=== PATIENT | female | born 1990 ===

== ENCOUNTER 2018-07-23 20:36 | Observation (INO) | payer OTHER | END 2018-07-23 22:11 | disposition home or self-care (01) | LOC: MW.OB 20:36 | PROVIDERS: ADMIT Obstetrics & Gynecology; ATTEND Obstetrics & Gynecology | DX: O47.1 False labor at or after 37 completed weeks of gestation (principal); O36.8130 Decreased fetal movements, third trimester, not applicable or unspecified; Z3A.35 35 weeks gestation of pregnancy | CPT/HCPCS: 59025; 81003 ==

== ENCOUNTER 2018-08-22 04:36 | Inpatient (IN) | payer OTHER ==
[2018-08-22] MEDS ORDERED: Sodium Chloride 0.9% 2.5 ML Syringe FLUSH PRN (17:56)
[2018-08-22] MEDS ORDERED: Sodium Chloride 0.9% 10 ML Syringe FLUSH PRN (17:56)
[2018-08-22] MEDS ORDERED: Misoprostol 200 MCG Tab PO PRN (17:56)
[2018-08-22] MEDS ORDERED: Sodium Chloride 0.9% 10 ML SDV IV PRN (17:56)
[2018-08-22] MEDS ORDERED: Carboprost Tromethamine 250 MCG/1 ML Amp IM PRN (17:56)
[2018-08-22] MEDS ORDERED: Butorphanol 1 MG/ML SDV IVPUSH PRN (17:56)
[2018-08-22] MEDS ORDERED: Nalbuphine 10 MG/1 ML Vial IVPUSH PRN (17:56)
[2018-08-22] MEDS ORDERED: Water For Irrigation,Sterile 1,000 ML Container IRR PRN (17:56)
[2018-08-22] MEDS ORDERED: Methylergonovine 0.2 MG/1 ML Amp IM PRN (17:56)
[2018-08-22] MEDS ORDERED: Tranexamic Acid 1,000 MG in Sodium Chloride 0.9% 100 ML IV PRN (17:56)
[2018-08-22] MEDS ORDERED: Lidocaine 1% 50 ML MDV INJECT PRN (17:56)
[2018-08-22] MEDS ORDERED: Oxytocin/0.9 % Sodium Chloride 30 UNIT/500 ML BAG IV SCH ×2 (18:00→18:30)
[2018-08-22] MEDS ORDERED: Terbutaline 1 MG/ML SDV SUBCUT PRN (18:21)
[2018-08-22] MEDS: Lactated Ringers 1,000 ML IV SCH (19:53)
--- NOTE | 2018-08-22 23:04 | PCM.PREANE ---
Preanesthetic Assessment - Anesthesia/Transfusion/Family Hx Anesthesia History: Prior Anesthesia Without Reaction Transfusion History: No Prior Transfusion(s) - Review of Systems General: No Symptoms Pulmonary: No Symptoms Cardiovascular: No Symptoms Gastrointestinal: No Symptoms Neurological: No Symptoms Other: Reports: None - Physical Assessment Height: 5 ft 3 in Weight: 57.153 kg ASA Class: 2 Mental Status: Alert & Oriented x3 Airway Class: Mallampati = 2 Dentition: Reports: Normal Dentition Thyro-Mental Finger Breadths: 3 Mouth Opening Finger Breadths: 3 Lungs: Clear to Auscultation, Normal Respiratory Effort Cardiovascular: Regular Rate, Regular Rhythm - Lab Values: Laboratory Last Values WBC 6.83 K/uL (4.0-11.0) 08/22/18 18:13 RBC 4.41 M/uL (4.30-5.90) 08/22/18 18:13 Hgb 9.4 g/dL (12.0-16.0) L 08/22/18 18:13 Hct 31.8 % (36.0-46.0) L 08/22/18 18:13 MCV 72.1 fL (80.0-98.0) L 08/22/18 18:13 MCH 21.3 pg (27.0-32.0) L 08/22/18 18:13 MCHC 29.6 g/dL (31.0-37.0) L 08/22/18 18:13 RDW Std Deviation 44.2 fl (28.0-62.0) 08/22/18 18:13 RDW Coeff of Frances 17 % (11.0-15.0) H 08/22/18 18:13 Plt Count 224 K/uL (150-400) 08/22/18 18:13 MPV 10.10 fL (7.40-12.00) 08/22/18 18:13 Nucleated RBC % 0.6 /100WBC 08/22/18 18:13 Nucleated RBCs # 0 K/uL 08/22/18 18:13 Blood Type O POSITIVE 08/22/18 18:13 Antibody Screen NEGATIVE 08/22/18 18:13 - Allergies Allergies/Adverse Reactions: Allergies Allergy/AdvReac Type Severity Reaction Status Date / Time No Known Allergies Allergy Verified 08/22/18 17:54 - Acknowledgements Anesthesia Type Planned: Epidural Pt an Appropriate Candidate for the Planned Anesthesia: Yes Alternatives and Risks of Anesthesia Discussed w Pt/Guardian: Yes Pt/Guardian Understands and Agrees with Anesthesia Plan: Yes PreAnesthesia Questionnaire HEENT History: Reports: None Cardiovascular History: Reports: None Respiratory History: Reports: None Gastrointestinal History: Reports: Chronic Constipation, GERD Genitourinary History: Reports: None 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): Musculoskeletal History: Reports: None Neurological History: Reports: Migraines Psychiatric History: Reports: Anxiety, OCD, Panic Attack Endocrine/Metabolic History: Reports: None Hematologic History: Reports: None Immunologic History: Reports: None Oncologic (Cancer) History: Reports: None Dermatologic History: Reports: None - Infectious Disease History Infectious Disease History: Reports: Chicken Pox - Past Surgical History HEENT Surgical History: Reports: None GI Surgical History: Reports: None Female Surgical History: Reports: None Musculoskeletal Surgical History: Reports: None - SUBSTANCE USE Smoking Status *Q: Never Smoker Second Hand Smoke Exposure: No Recreational Drug Use History: No - HOME MEDS Home Medications: Home Meds . [No Known Home Meds] 08/22/18 [History] - CURRENT (IN HOUSE) MEDS Current Meds: Current Medications Butorphanol Tartrate (Stadol) 1 mg IVPUSH Q1H PRN PRN Reason: Pain Carboprost Tromethamine (Hemabate Ds) 250 mcg IM ASDIRECTED PRN PRN Reason: Post Hemorrhage Lactated Ringer's (Ringers, Lactated) 1,000 mls @ 150 mls/hr IV ASDIRECTED MARIKA Last Admin: 08/22/18 19:53 Dose: 150 mls/hr Oxytocin/Sodium Chloride (Oxytocin 30 Unit/500 Ml-Ns) 30 unit in 500 mls @ 500 mls/hr IV TITRATE MARIKA Tranexamic Acid 1,000 mg/ (Sodium Chloride) 110 mls @ 660 mls/hr IV ONETIME PRN PRN Reason: Bleeding Oxytocin/Sodium Chloride (Oxytocin 30 Unit/500 Ml-Ns) 30 unit in 500 mls @ 2 mls/hr IV TITRATE MARIKA; Protocol Last Admin: 08/22/18 19:53 Dose: 2 munits/min, 2 mls/hr Lidocaine HCl (Xylocaine 1%) 50 ml INJECT ONETIME PRN PRN Reason: Laceration repair Methylergonovine Maleate (Methergine) 0.2 mg IM ASDIRECTED PRN PRN Reason: Post Hemorrhage Misoprostol (Cytotec) 200 mcg PO ONETIME PRN PRN Reason: Post Hemorrhage Nalbuphine HCl (Nubain) 10 mg IVPUSH Q1H PRN PRN Reason: Pain (severe 7-10) Sodium Chloride (Saline Flush) 10 ml FLUSH ASDIRECTED PRN PRN Reason: Keep Vein Open Sodium Chloride (Saline Flush) 2.5 ml FLUSH ASDIRECTED PRN PRN Reason: Keep Vein Open Sodium Chloride (Normal Saline) 10 ml IV ASDIRECTED PRN PRN Reason: IV Use Sterile Water (Sterile Water For Irrigation) 1,000 ml IRR ASDIRECTED PRN PRN Reason: delivery Terbutaline Sulfate (Brethine) 0.25 mg SUBCUT ASDIRECTED PRN PRN Reason: Tacysystole
[2018-08-23] MEDS: Lactated Ringers 1,000 ML IV SCH ×2 (02:36→02:37)
[2018-08-23] MEDS ORDERED: Bupivacaine 0.5% 10 ML SDV ONE (03:40)
[2018-08-23] MEDS ORDERED: Lanolin 100% Cream 7 GM Tube TOP PRN (05:21)
[2018-08-23] MEDS ORDERED: Benzocaine/Menthol 20%-0.5% Spray 78 GM Cannister TOP PRN (05:21)
[2018-08-23] MEDS ORDERED: Bisacodyl 10 MG Supp RECTAL PRN (05:21)
[2018-08-23] MEDS ORDERED: Witch Hazel Medicated Pads 40/Jar TOP PRN (05:21)
[2018-08-23] MEDS ORDERED: Ibuprofen 400 MG Tab PO PRN (05:21)
--- NOTE | 2018-08-23 05:25 | PCM.DEL ---
L & D Note - General Info Date of Service: 08/23/18 Mother's Due Date: 08/23/18 - Delivery Note Labor: Augmented by ARM, Augmented by Oxytocin Delivery Outcome: Livebirth Delivery Method: Spontaneous Vaginal Delivery-Single Presentation: Left Occiput Anterior (MELVA) Anesthesia Type: Epidural Amniotic Fluid Description: Clear Episiotomy Type: None Laceration: 2nd Degree Suture type: Other (monocryl) Suture size: 3-0 Placenta: Intact Cord: 3 Vessels Estimated Blood Loss: 350 Resuscitation Needed: No Score 1 min: 9 Score 5 min: 9 Delivery Comments (Free Text/Narrative):: Live female delivered at 436am , 9/9 weight 3500g - General Info Date of Service: 08/23/18 - Patient Data Weight - Most Recent: 57.153 kg Lab Results Last 24 Hours: Laboratory Results - last 24 hr 08/22/18 08/22/18 Range/Units 18:13 18:13 WBC 6.83 (4.0-11.0) K/uL RBC 4.41 (4.30-5.90) M/uL Hgb 9.4 L (12.0-16.0) g/dL Hct 31.8 L (36.0-46.0) % MCV 72.1 L (80.0-98.0) fL MCH 21.3 L (27.0-32.0) pg MCHC 29.6 L (31.0-37.0) g/dL RDW Std Deviation 44.2 (28.0-62.0) fl RDW Coeff of Frances 17 H (11.0-15.0) % Plt Count 224 (150-400) K/uL MPV 10.10 (7.40-12.00) fL Nucleated RBC % 0.6 /100WBC Nucleated RBCs # 0 K/uL Blood Type O POSITIVE Antibody Screen NEGATIVE Med Orders - Current: Current Medications Carboprost Tromethamine (Hemabate Ds) 250 mcg IM ASDIRECTED PRN PRN Reason: Post Hemorrhage Lactated Ringer's (Ringers, Lactated) 1,000 mls @ 150 mls/hr IV ASDIRECTED MARIKA Last Admin: 08/23/18 02:37 Dose: 150 mls/hr Oxytocin/Sodium Chloride (Oxytocin 30 Unit/500 Ml-Ns) 30 unit in 500 mls @ 500 mls/hr IV TITRATE MARIKA Tranexamic Acid 1,000 mg/ (Sodium Chloride) 110 mls @ 660 mls/hr IV ONETIME PRN PRN Reason: Bleeding Oxytocin/Sodium Chloride (Oxytocin 30 Unit/500 Ml-Ns) 30 unit in 500 mls @ 2 mls/hr IV TITRATE MARIKA; Protocol Last Admin: 08/22/18 19:53 Dose: 2 munits/min, 2 mls/hr Lidocaine HCl (Xylocaine 1%) 50 ml INJECT ONETIME PRN PRN Reason: Laceration repair Methylergonovine Maleate (Methergine) 0.2 mg IM ASDIRECTED PRN PRN Reason: Post Hemorrhage Misoprostol (Cytotec) 200 mcg PO ONETIME PRN PRN Reason: Post Hemorrhage Sodium Chloride (Saline Flush) 10 ml FLUSH ASDIRECTED PRN PRN Reason: Keep Vein Open Sodium Chloride (Saline Flush) 2.5 ml FLUSH ASDIRECTED PRN PRN Reason: Keep Vein Open Sodium Chloride (Normal Saline) 10 ml IV ASDIRECTED PRN PRN Reason: IV Use Sterile Water (Sterile Water For Irrigation) 1,000 ml IRR ASDIRECTED PRN PRN Reason: delivery Terbutaline Sulfate (Brethine) 0.25 mg SUBCUT ASDIRECTED PRN PRN Reason: Tacysystole Discontinued Medications Bupivacaine HCl (Sensorcaine-Mpf 0.5%) Confirm Administered Dose 10 ml .ROUTE .STK-MED ONE Stop: 08/23/18 03:41 Butorphanol Tartrate (Stadol) 1 mg IVPUSH Q1H PRN PRN Reason: Pain Fentanyl/Bupivacaine HCl (Cynjkvqd-Xpjed-Nu 2 Mcg/Ml-0.125%) Confirm Administered Dose 100 mls @ as directed .ROUTE .STK-MED ONE Stop: 08/22/18 23:35 Fentanyl/Bupivacaine HCl (Zzpxbxrx-Hgdjy-Ty 2 Mcg/Ml-0.125%) Confirm Administered Dose 100 mls @ as directed .ROUTE .STK-MED ONE Stop: 08/23/18 04:20 Nalbuphine HCl (Nubain) 10 mg IVPUSH Q1H PRN PRN Reason: Pain (severe 7-10) - Problem List & Annotations (1) Vaginal delivery SNOMED Code(s): 532451182 Code(s): O80 - ENCOUNTER FOR FULL-TERM UNCOMPLICATED DELIVERY Status: Acute Current Visit: Yes - Problem List Review Problem List Initiated/Reviewed/Updated: Yes - My Orders Last 24 Hours: My Active Orders 08/22/18 17:56 Patient Status [ADT] Routine Heart Tones [RC] CONTINUOUS Non Stress Test [RC] PER UNIT ROUTINE May Shower [RC] ASDIRECTED Notify Provider [RC] PRN Vaginal Exam [RC] PRN Vital Signs [RC] PER UNIT ROUTINE Carboprost Tromethamine [Hemabate DS] 250 mcg IM ASDIRECTED PRN Lidocaine 1% [Xylocaine 1%] 50 ml INJECT ONETIME PRN Methylergonovine [Methergine] 0.2 mg IM ASDIRECTED PRN Sodium Chloride 0.9% [Normal Saline] 10 ml IV ASDIRECTED PRN Sodium Chloride 0.9% [Saline Flush] 10 ml FLUSH ASDIRECTED PRN Sodium Chloride 0.9% [Saline Flush] 2.5 ml FLUSH ASDIRECTED PRN Tranexamic Acid [Cyklokapron] 1,000 mg Sodium Chloride 0.9% [Normal Saline] 100 ml IV ONETIME Water For Irrigation,Sterile [Sterile Water for Irrigation] 1,000 ml IRR ASDIRECTED PRN miSOPROStol [Cytotec] 200 mcg PO ONETIME PRN Peripheral IV Insertion Adult [OM.PC] Routine 08/22/18 18:00 Lactated Ringers [Ringers, Lactated] 1,000 ml IV ASDIRECTED Oxytocin/0.9 % Sodium Chloride [Oxytocin 30 Unit/500 ML-NS] 30 unit in 500 ml IV TITRATE 08/22/18 18:21 Communication Order [RC] ASDIRECTED Notify Provider [RC] STAT Vaginal Exam [RC] PRN Vital Signs [RC] PER UNIT ROUTINE Terbutaline [Brethine] 0.25 mg SUBCUT ASDIRECTED PRN 08/22/18 18:30 Oxytocin/0.9 % Sodium Chloride [Oxytocin 30 Unit/500 ML-NS] 30 unit in 500 ml IV TITRATE Medication Administration Instruction [OM.PC] Q3H 08/23/18 05:21 Acetaminophen [Tylenol Extra Strength] 1,000 mg PO Q4H PRN Acetaminophen [Tylenol Extra Strength] 500 mg PO Q4H PRN Benzocaine/Menthol [Dermoplast Pain Relief 20%-0.5% [place]] 78 gm TOP ASDIRECTED PRN Bisacodyl [Dulcolax] 10 mg RECTAL ONETIME PRN Docusate Sodium [Colace] 100 mg PO BID PRN Ibuprofen [Motrin] 400 mg PO Q4H PRN Ibuprofen [Motrin] 800 mg PO Q6H PRN Lanolin [Lansinoh HPA] See Dose Instructions TOP ASDIRECTED PRN Witch Natalia [Tucks] 1 pad TOP ASDIRECTED PRN oxyCODONE 5 mg PO Q2H PRN 08/23/18 05:22 Patient Status [ADT] Routine May Shower [RC] ASDIRECTED Up ad Jenn [RC] ASDIRECTED Vital Signs [RC] PER UNIT ROUTINE Assess Lochia [WOMSER] Per Unit Routine Assess Uterine Involution [WOMSER] Per Unit Routine Peripheral IV Discontinue [OM.PC] Routine 08/24/18 05:11 HEMOGLOBIN/HEMATOCRIT,HH [HEME] Timed 08/24/18 05:21 Measles, Mumps & Rubella [M-M-R II Vaccine] 0.5 ml SUBCUT .ONCE ONE
--- NOTE | 2018-08-23 07:18 | PCM48HPAN ---
Post Anesthesia Note - EVALUATION WITHIN 48HRS OF ANESTHETIC Vital Signs in Normal Range: Yes Patient Participated in Evaluation: Yes Respiratory Function Stable: Yes Airway Patent: Yes Cardiovascular Function Stable: Yes Hydration Status Stable: Yes Pain Control Satisfactory: Yes Nausea and Vomiting Control Satisfactory: Yes Mental Status Recovered: Yes Pulse Rate: 80 SaO2: 97 Resp Rate: 16
[2018-08-23] MEDS: Docusate Sodium 100 MG Cap PO PRN ×2 (08:35→20:07)
[2018-08-23] MEDS: Acetaminophen 500 MG Tab PO PRN ×3 (08:36→17:02)
[2018-08-23] MEDS: Ibuprofen 800 MG Tab PO PRN ×3 (08:39→23:09)
[2018-08-23] MEDS: oxyCODONE 5 MG Tab PO PRN (20:07)
[2018-08-24] MEDS: Acetaminophen 500 MG Tab PO PRN (04:25)
[2018-08-24] MEDS ORDERED: Measles, Mumps & Rubella Vaccine 0.5 ML SDV SUBCUT ONE (05:21)
--- NOTE | 2018-08-24 07:51 | OR ---
SURGEON: TRENT LEDESMA DATE OF PROCEDURE: 08/23/2018 PREOPERATIVE DIAGNOSIS: A 27-year-old G2, P1, at 40 weeks 0 days. Elective induction of labor. POSTOPERATIVE DIAGNOSIS: same PROCEDURE: Normal spontaneous vaginal delivery Repair of second-degree vaginal laceration. ANESTHESIA: Epidural. NOTES AND FINDINGS: A live female delivered at 4:36 a.m. score was 9 and 9. Weight is 3500 g. BRIEF HISTORY: She is a 27-year-old G2, P1, at 40 weeks with she wanted elective induction. She was 2 cm dilated. She received Pitocin and after a while Pitocin was halted because she was having tachysystole. She had made change in labor and became fully dilated. The patient being fully dilated, she was encouraged to push. PROCEDURE: She delivered the head, subsequently by the anterior and posterior shoulder. The body of the was delivered. The delayed cord clamping was observed. The cord was clamped and cut, the placenta was delivered via controlled cord traction. The uterus was massaged. Hemostasis was noted. Second-degree laceration was noted which was repaired with 2-0 Monocryl. The Pitocin was running . All instrument and pad counts were correct x2. The patient tolerated the procedure well and left the Labor and Delivery room in stable condition. SHE MAN /[id number] MTDD
[2018-08-24] MEDS ORDERED: diphenhydrAMINE 50 MG/ML SDV IVPUSH ONE (08:51)
--- NOTE | 2018-08-24 08:56 | PCM.PNPP ---
- General Info Date of Service: 08/24/18 Subjective Update: 27yo P2 s/p PPD1 , complains of some hemorrhoid pain she is using tucks for relief, Has aneamia with h.h of 09/28 , asymptomatic and tolerating regular diet Functional Status: Reports: Pain Controlled, Tolerating Diet, Ambulating, Urinating - Review of Systems General: Reports: No Symptoms HEENT: Reports: No Symptoms Pulmonary: Reports: No Symptoms Cardiovascular: Reports: No Symptoms Gastrointestinal: Reports: No Symptoms Genitourinary: Reports: No Symptoms Musculoskeletal: Reports: No Symptoms Skin: Reports: No Symptoms Neurological: Reports: No Symptoms Psychiatric: Reports: No Symptoms - General Info Date of Service: 08/24/18 - Patient Data Vital Signs - Most Recent: Last Vital Signs Temp 36.3 C 08/24/18 07:00 Pulse 64 08/24/18 07:00 Resp 15 08/24/18 07:00 BP 110/73 08/24/18 07:00 Pulse Ox 96 08/24/18 07:00 Weight - Most Recent: 57.153 kg Lab Results - Last 24 Hours: Laboratory Results - last 24 hr 08/24/18 Range/Units 05:02 Hgb 7.7 L (12.0-16.0) g/dL Hct 26.4 L (36.0-46.0) % Med Orders - Current: Current Medications Acetaminophen (Tylenol Extra Strength) 500 mg PO Q4H PRN PRN Reason: Pain Last Admin: 08/23/18 14:12 Dose: 500 mg Acetaminophen (Tylenol Extra Strength) 1,000 mg PO Q4H PRN PRN Reason: Pain Last Admin: 08/24/18 04:25 Dose: 1,000 mg Benzocaine/Menthol (Dermoplast Pain Relief 20%-0.5% [place]) 78 gm TOP ASDIRECTED PRN PRN Reason: Perineal Comfort Measure Last Admin: 08/23/18 08:42 Dose: 1 can Bisacodyl (Dulcolax) 10 mg RECTAL ONETIME PRN PRN Reason: Constipation Carboprost Tromethamine (Hemabate Ds) 250 mcg IM ASDIRECTED PRN PRN Reason: Post Hemorrhage Diphenhydramine HCl (Benadryl) 25 mg IVPUSH ONETIME ONE Stop: 08/24/18 08:52 Docusate Sodium (Colace) 100 mg PO BID PRN PRN Reason: Constipation Last Admin: 08/23/18 20:07 Dose: 100 mg Emollient Ointment (Lansinoh Hpa) 0 gm TOP ASDIRECTED PRN PRN Reason: Sore Nipples Last Admin: 08/23/18 08:43 Dose: 1 tube Lactated Ringer's (Ringers, Lactated) 1,000 mls @ 150 mls/hr IV ASDIRECTED MARIKA Last Admin: 08/23/18 02:37 Dose: 150 mls/hr Oxytocin/Sodium Chloride (Oxytocin 30 Unit/500 Ml-Ns) 30 unit in 500 mls @ 500 mls/hr IV TITRATE MARIKA Tranexamic Acid 1,000 mg/ (Sodium Chloride) 110 mls @ 660 mls/hr IV ONETIME PRN PRN Reason: Bleeding Oxytocin/Sodium Chloride (Oxytocin 30 Unit/500 Ml-Ns) 30 unit in 500 mls @ 2 mls/hr IV TITRATE MARIKA; Protocol Last Admin: 08/22/18 19:53 Dose: 2 munits/min, 2 mls/hr Iron Sucrose 300 mg/ Sodium (Chloride) 115 mls @ 400 mls/hr IV ONETIME ONE Stop: 08/24/18 09:04 Ibuprofen (Motrin) 400 mg PO Q4H PRN PRN Reason: Pain Ibuprofen (Motrin) 800 mg PO Q6H PRN PRN Reason: Pain Last Admin: 08/23/18 23:09 Dose: 800 mg Lidocaine HCl (Xylocaine 1%) 50 ml INJECT ONETIME PRN PRN Reason: Laceration repair Methylergonovine Maleate (Methergine) 0.2 mg IM ASDIRECTED PRN PRN Reason: Post Hemorrhage Misoprostol (Cytotec) 200 mcg PO ONETIME PRN PRN Reason: Post Hemorrhage Oxycodone HCl (Oxycodone) 5 mg PO Q2H PRN PRN Reason: Pain Last Admin: 08/23/18 20:07 Dose: 5 mg Sodium Chloride (Saline Flush) 10 ml FLUSH ASDIRECTED PRN PRN Reason: Keep Vein Open Sodium Chloride (Saline Flush) 2.5 ml FLUSH ASDIRECTED PRN PRN Reason: Keep Vein Open Sodium Chloride (Normal Saline) 10 ml IV ASDIRECTED PRN PRN Reason: IV Use Sterile Water (Sterile Water For Irrigation) 1,000 ml IRR ASDIRECTED PRN PRN Reason: delivery Terbutaline Sulfate (Brethine) 0.25 mg SUBCUT ASDIRECTED PRN PRN Reason: Tacysystole Roger Natalia (Tucks) 1 pad TOP ASDIRECTED PRN PRN Reason: comfort care Last Admin: 08/23/18 08:43 Dose: 1 tub Discontinued Medications Bupivacaine HCl (Sensorcaine-Mpf 0.5%) Confirm Administered Dose 10 ml .ROUTE .STK-MED ONE Stop: 08/23/18 03:41 Butorphanol Tartrate (Stadol) 1 mg IVPUSH Q1H PRN PRN Reason: Pain Fentanyl/Bupivacaine HCl (Hrwrdqqk-Ambwu-Ak 2 Mcg/Ml-0.125%) Confirm Administered Dose 100 mls @ as directed .ROUTE .STK-MED ONE Stop: 08/22/18 23:35 Fentanyl/Bupivacaine HCl (Ihtrzudi-Bbxqi-Ew 2 Mcg/Ml-0.125%) Confirm Administered Dose 100 mls @ as directed .ROUTE .STK-MED ONE Stop: 08/23/18 04:20 Measles/Mumps/Rubella Vaccine Live (M-M-R Ii Vaccine) 0.5 ml SUBCUT .ONCE ONE Stop: 08/24/18 05:22 Nalbuphine HCl (Nubain) 10 mg IVPUSH Q1H PRN PRN Reason: Pain (severe 7-10) - Interaction Support Person: - Recovery Exam Fundal Tone: Firm Fundal Level: 1 Fingerbreadths Below Umbilicus Fundal Placement: Midline Lochia Amount: Scant Lochia Color: Rubra/Red Perineum Description: Intact, Minimal Bruising/Swelling Episiotomy/Laceration: None Bladder Status: Voiding Urinary Elimination: Voided - Exam General: Alert HEENT: Pupils Equal Neck: Supple Lungs: Clear to Auscultation Cardiovascular: Regular Rate, Regular Rhythm GI/Abdominal Exam: Normal Bowel Sounds Extremities: Normal Inspection Psy/Mental Status: Alert - Problem List & Annotations (1) Vaginal delivery SNOMED Code(s): 977716315 Code(s): O80 - ENCOUNTER FOR FULL-TERM UNCOMPLICATED DELIVERY Status: Acute Current Visit: Yes - Problem List Review Problem List Initiated/Reviewed/Updated: Yes - My Orders Last 24 Hours: My Active Orders 08/24/18 08:49 Iron Sucrose Complex [Venofer] 300 mg Sodium Chloride 0.9% [Normal Saline] 100 ml IV ONETIME 08/24/18 08:51 diphenhydrAMINE [Benadryl] 25 mg IVPUSH ONETIME ONE - Assessment Assessment:: 27 yo P2 s/p PPD1 , anemia , stable vital , hemorrhoids ( relief with tucks) - Plan Plan:: WIll give IV iron 300mg venofer before discharge iron and Iron at home Pain control as need WIll send [facility]
[2018-08-24] MEDS: Ibuprofen 800 MG Tab PO PRN (10:06)
[2018-08-24] MEDS: oxyCODONE 5 MG Tab PO PRN (13:30)
== END 2018-08-24 14:02 | disposition home or self-care (01) | DRG 806 ==
LOC: MW.OB 04:36 → OBSVTOIN 08-23 04:36 → MW.OB 08-23 11:51
PROVIDERS: ADMIT Obstetrics & Gynecology; ATTEND Obstetrics & Gynecology
PROC: 10E0XZZ Delivery of Products of Conception, External Approach (ICD-10-PCS; principal; 2018-08-23)
PROC: 0KQM0ZZ Repair Perineum Muscle, Open Approach (ICD-10-PCS; 2018-08-23)
PROC: 10907ZC Drainage of Amniotic Fluid, Therapeutic from Products of Conception, Via Natural or Artificial Opening (ICD-10-PCS; 2018-08-23)
PROC: 10H07YZ Insertion of Other Device into Products of Conception, Via Natural or Artificial Opening (ICD-10-PCS; 2018-08-23)
PROC: 4A1HXCZ Monitoring of Products of Conception, Cardiac Rate, External Approach (ICD-10-PCS; 2018-08-23)
DX: O48.0 Post-term pregnancy (principal); O87.2 Hemorrhoids in the puerperium; Z37.0 Single live birth; D62 Acute posthemorrhagic anemia; O70.1 Second degree perineal laceration during delivery; O90.81 Anemia of the puerperium; Z3A.40 40 weeks gestation of pregnancy
CPT/HCPCS: 36415; 51702; 59025; 59409; 85014; 85018; 85027; 86850; 86900; 86901; A9270-GY; J1200; J1756; J2590; J3490; J7030; J7120